=== PATIENT | male | born 1955 | race Hispanic/Latino ===

== ENCOUNTER 2024-03-12 14:54 | Emergency (ER) | payer MEDICARE, SELFPAY ==
[2024-03-12 15:06] VITALS: BP 127/79
--- NOTE | 2024-03-12 16:07 | ED.GENMED ---
History of Present Illness
General
Chief Complaint: Musculo-Skeletal Complaint
Source: patient
Exam Limitations: none
Time Seen by Provider: 03/12/24 15:25
Nursing documentation reviewed up to this point in time: agreed with
Travel History
Have you had any contact with someone who has COVID-19?: No
Do you have any symptoms of coronavirus? Fever > 100 degrees, chills, cough, shortness of breath, sore throat, loss of taste or smell, muscle aches, or headache?: No
History of Present Illness
History of Present Illness:
Patient is a 68-year-old male presenting for evaluation of right ankle injury sustained 2 days ago after mechanical fall. Patient states that he was walking down a set of indoor steps when he missed a step falling and inverting his right ankle. He
denies sustaining any other injuries in the fall. He does report worsening swelling and bruising over the past few days. He is able to ambulate with some discomfort. Patient denies any numbness or tingling of right foot. He has been able to
continue to work. The worsening in bruising made him concerned which is why he presents to the emergency department today for evaluation.
Patient does not take any blood thinners.
Past History
Past History
ED Past Medical History: None
ED Past Surgical History: Other (Hernia)
Social History
Tobacco: Non-smoker
Phy Exam
Physical Exam
Physical Exam:
Vitals: Patient's vital signs are stable
General: Patient is well appearing, no acute distress
Skin: Warm and dry, no rashes or lesions
Head: Normocephalic, atraumatic
Eyes: Sclera nonicteric. EOMs intact. No nystagmus.
Throat: Protecting airway
Neck: Normal ROM, no cervical spine tenderness, no meningismus
Cardiac: Regular rate and rhythm, no murmurs.
Pulm: Normal respiratory effort, no wheezes, rales, rhonchi heard on exam.
Abdomen: No abdominal tenderness.
Extremities: Significant swelling of right ankle and right foot worse at lateral malleolus. Some swelling of medial malleolus. Significant ecchymoses of lateral and medial malleolus, extending down lateral foot and to dorsal foot near MTP joint.
Tenderness most significant at insertion of ATFL just anterior to lateral malleolus. No tenderness at base of right metatarsal, midfoot, hindfoot, lateral foot. Achilles intact. No tenderness at fibular head. Right lower extremity warm and
well-perfused. DP pulses palpable. Neurovascularly intact.
Neuro: AAOx3. CN II-XII intact. No focal neurologic deficits.
Psychiatric: Normal affect.
Course
Orders/Labs/Results
Orders:
Orders
03/12/24 15:09
CR Ankle - Right Min 3 Views * Urgent
Comment:
Reason For Exam: fall
03/12/24 16:18
Ortho Boot Right- Treatment ONCE
Short or tall?: Tall
Acetaminophen [Tylenol] 650 mg PO NOW STA
Vital Signs
Initial and Last Documented VS:
Initial Vital Signs
Temp Pulse Resp BP Pulse Ox
97.7 F 85 20 127/79 97
03/12/24 15:06 03/12/24 15:06 03/12/24 15:06 03/12/24 15:06 03/12/24 15:06
Last Documented Vital Signs
Temp Pulse Resp BP Pulse Ox
97.7 F 85 20 127/79 97
03/12/24 15:06 03/12/24 15:06 03/12/24 15:06 03/12/24 15:06 03/12/24 15:06
MDM/Problems Addressed
Differential Diagnosis Includes:
Not limited to: Ankle sprain, ankle fracture, foot sprain, foot fracture, Achilles tendon rupture
MDM/Problems Addressed:
Patient is a 68-year-old male presenting for evaluation of worsening swelling and bruising of right ankle and foot status post mechanical fall 2 days ago. Patient able to ambulate with minimal pain. No numbness or tingling of right foot. Vital
signs stable. Exam as above. There is significant swelling of right ankle, worse at lateral malleolus with bruising extending from ankle to MTP joints. Area of tenderness most significant insertion of ATFL just anterior to right lateral
malleolus. Right lower extremity neurovascular intact. X-ray obtained in triage shows no signs of fracture. Likely moderate right ankle sprain. Bruising likely secondary to gravity.
Patient well-appearing. In no apparent distress. Will discharge with walking boot, orthopedic follow-up. Recommend rest, ice, elevation, NSAIDs as needed for discomfort. Patient comfortable with plan. All questions answered.
Chronic conditions affecting care:
N/A
Acute Exacerbation and/or Progression of Chronic Illness:
N/A
*Radiology
Radiology exam reviewed: preliminary read by ED provider and radiology read reviewed
*Pulse Oximetry
Patient hypoxic: no
*EKG
Interpreted by ED Provider?: NA
*Wireless Sales Manager Interpretation
Rate: Wireless Sales Manager- N/A
*Critical Care Note
Total Time (30-74mins, 75-104mins- exclusive of procedures): Not Applicable
ED Attending Note
-
Portions of this chart may have been created with voice recognition software.� Occasional wrong word or��sound alike� substitutions may have occurred due to the inherent limitations of voice recognition software.
Discharge Plan
Departure
Patient Disposition: Home (Routine Discharge)
Date of Disposition: 03/12/24
Time of Disposition: 16:27
Patient with high blood pressure during this ER visit?: No
Condition: Good
Covid-19: Not Applicable
Discharge Problem:
Sprain of ankle, right
Instructions: Ankle Sprain ED
Prescriptions:
New
oxycodone 5 mg tablet
5 mg PO Q6H PRN (Reason: Pain) Qty: 5 0RF
No Action
oxycodone 5 mg tablet
5 mg PO Q4H PRN (Reason: pain) Qty: 20 0RF
prednisone 20 mg tablet
20 mg PO BID Qty: 14 0RF
Referrals:
Melvin Albrecht, DO [Active] - As needed
NONE,* [Family Provider] - Follow up in 5-7 days
Activity Restrictions/Additional Instructions:
- Return to the emergency department with any high fevers, severe pain in right ankle, worsening of swelling in right ankle, numbness/tingling in right ankle, inability to ambulate, worsening in current symptoms, or any other concerns
-As discussed�you should take Tylenol every 6 hours as needed for pain. You can also take Motrin (400mg) once or twice a day as needed for pain. If severe, intractable pain you can take oxycodone as needed to help you sleep. This may cause
drowsiness. You should not take prior to driving.
-You should rest ankle, ice and elevate ankle as often as possible over the next few days. You should keep foot in boot for the next few weeks until symptoms improve
-Follow-up with your primary care provider in a week to ensure symptoms are improving. If symptoms persist and/or worsen in 2 weeks you should follow-up with orthopedics. Number has been provided above.
Interventions
Interventions:
*Risk Screen - Suicide Last Done: 03/12/24 15:06
*General Assessment Last Done: 03/12/24 15:06
*Neglect/Abuse Screening Last Done: 03/12/24 15:06
*Nursing Disposition Last Done: 03/12/24 16:48
ED-Musculoskeletal Assessment Last Done: 03/12/24 16:47
Discharge Date and Time
Discharge Date/Time: 03/12/24 16:48
Print Language: [id number]
[2024-03-12] MEDS: TYLENOL 650 MG PO (16:44)
== END 2024-03-12 16:48 | disposition home or self-care (01) ==
LOC: EMR 14:54
PROVIDERS: EMERGENCY PHYSICIAN Emergency Medicine
DX: S93.401A Sprain of unspecified ligament of right ankle, initial encounter (principal); S90.01XA Contusion of right ankle, initial encounter; W10.9XXA Fall (on) (from) unspecified stairs and steps, initial encounter; Y93.01 Activity, walking, marching and hiking
CPT/HCPCS: 99283; 29515; 73610